=== PATIENT | female | born 1960 | race Caucasian/White ===

== ENCOUNTER 2017-03-29 19:56 | Emergency (ER) | payer BC ==
[~2017-03-29] VITALS: Ht 157.5 cm; Wt 83.0 kg
[~2017-03-29 19:56] MED LIST: ALLEGRA; ASPIRIN; ASPIRIN81 M2 PO; B COMPLEX PO; CRESTOR PO; CRESTOR5 MG PO; MOTRIN800 MG PO; PREMARIN PO; PREMARIN0.625 MG PO; PROTONIX PO; PROTONIX40 MG PO; RENATABS TABLE1 EACH PO; SYNTHROID50 MCG PO; VIT D; VITAMIN C PO; VITAMIN D PO; WELLBUTRIN; WELLBUTRIN XL300 MG PO
[2017-03-29] MEDS ORDERED: PREDNISONE20 MG PO (22:24)
[2017-03-29] MEDS ORDERED: ROBITUSSIN AC,T10 ML PO (22:24)
[2017-03-29 22:34] VITALS: BP 159/78
== END 2017-03-29 22:37 | disposition home or self-care (01) ==
LOC: EME 19:56
DX: J40 Bronchitis, not specified as acute or chronic (principal); J02.9 Acute pharyngitis, unspecified; R51 Headache; Z90.710 Acquired absence of both cervix and uterus; Z79.890 Hormone replacement therapy; Z79.82 Long term (current) use of aspirin
CPT/HCPCS: 71020; 99281; 99284; J7512

== ENCOUNTER 2018-02-12 21:31 | Emergency (ER) | payer BC ==
[~2018-02-12] VITALS: Ht 157.5 cm; Wt 79.5 kg
[~2018-02-12 21:31] MED LIST changes: +PREDNISONE20 MG PO; +ROBITUSSIN AC,T10 ML PO
[2018-02-12] MEDS ORDERED: MOTRIN600 MG PO (23:20)
[2018-02-12] MEDS ORDERED: PREDNISONE20 MG PO (23:20)
[2018-02-12] MEDS ORDERED: VALIUM2 MG PO (23:20)
[2018-02-12 23:40] VITALS: BP 117/58
== END 2018-02-12 23:41 | disposition home or self-care (01) ==
LOC: EME 21:31
DX: S39.012A Strain of muscle, fascia and tendon of lower back, initial encounter (principal); M25.552 Pain in left hip; X50.9XXA Other and unspecified overexertion or strenuous movements or postures, initial encounter; Y93.H1 Activity, digging, shoveling and raking; J44.9 Chronic obstructive pulmonary disease, unspecified; I34.1 Nonrheumatic mitral (valve) prolapse; Z98.1 Arthrodesis status; Z90.710 Acquired absence of both cervix and uterus; Z79.82 Long term (current) use of aspirin; Z91.040 Latex allergy status; Z88.1 Allergy status to other antibiotic agents; Z88.6 Allergy status to analgesic agent; Z88.5 Allergy status to narcotic agent
CPT/HCPCS: 73502; 99281; 99285; J1885; J7512